=== PATIENT | female | born 1965 | race Caucasian/White ===

== ENCOUNTER 2019-05-27 19:45 | Inpatient (IN) ==
[2019-05-27] MEDS ORDERED: SOLU-MEDROL IV ONE (20:02)
[2019-05-27] MEDS ORDERED: DUONEB (A & A) INH ONE (20:02)
--- NOTE | 2019-05-27 20:38 | Diag Imaging Result Doc PS360 ---
CHEST-1 VIEW - 05/27/2019 INDICATION: sob COMPARISON: 02/10/2019 FINDINGS: There is worsening cardiomegaly and pulmonary vascular congestion. There are ill-defined interstitial infiltrates bilaterally. No pneumothorax or large pleural effusion. IMPRESSION: Cardiomegaly and pulmonary edema. Electronically signed by Ori Reed 05/27/2019 8:36 PM
[2019-05-27 20:48] LABS: ALB/GLOB RATIO 1.8; ALBUMIN 3.9 g/dL (3.5-5.0); CALCIUM 8.5 mg/dL (8.8-10.2); CREATININE 1.1 mg/dL (0.5-0.9); POTASSIUM 3.5 mmol/L (3.5-5.1); TOTAL BILIRUBIN 0.62 mg/dL (0.20-1.00); TOTAL PROTEIN 6.1 g/dL (6.3-8.3)
[2019-05-27 21:18] LABS: BASO# 0.02 X1000 (0.0-0.2); BASO% 0.3 % (0.0-0.8); EOS% 1.3 % (0.0-10.0); HEMOGLOBIN 13.9 g/dL (12.0-16.0); IMM GRAN# 0.03 X1000 (0.0-0.04); IMM GRAN% 0.4 % (0.0-0.5); LYMPH% 16.9 % (20.5-51.1); MCH 35.9 PG (27-31); MCHC 33.9 g/dL (33-37); MCV 105.9 FL (81-99); MONO# 0.88 X1000 (0.11-0.59); MONO% 11.5 % (1.7-9.3); MPV 11.5 FL (7.4-10.4); NEUT# 5.35 X1000 (1.4-6.5); NEUT% 69.6 % (42.2-75.2); PLT 209 X1000 (130-400); RBC 3.87 XMIL (4.2-5.4); RDW 14.9 % (11.5-14.5); WBC 7.68 X1000 (4.8-10.8)
--- NOTE | 2019-05-27 21:57 | EKG Report ---
Test Performed on : 05/27/2019 9:43:07 PM Test Reason : sob Blood Pressure : / mmHG Vent. Rate : 063 BPM Atrial Rate : 063 BPM P-R Int : 172 ms QRS Dur : 086 ms QT Int : 434 ms P-R-T Axes : 034 001 051 degrees QTc Int : 444 ms Normal sinus rhythm. Normal ECG When compared with ECG of 09-FEB-2019 22:43, No significant change was found Unconfirmed Result
--- NOTE | 2019-05-27 22:22 | PROVIDER DOCUMENTATION ---
This chart was entered by Sri Bryson Scribe, acting as scribe for Ty Charles MD. HPI-Respiratory General - General Chief Complaint: Shortness of Breath Stated Complaint: ALLERGIC REACTION Time Seen by Provider: 05/27/19 19:55 Source: patient Allergies/Adverse Reactions: Patient Allergies Allergy/AdvReac Type Severity Reaction Status Date / Time bacitracin Allergy Mild blisters Verified 11/16/17 05:57 [From Neosporin ([id number])] bacitracin zinc * Allergy Mild blisters Verified 11/16/17 05:57 [From Neosporin ([id number])] neomycin sulfate * Allergy Mild blisters Verified 11/16/17 05:57 [From Neosporin ([id number])] polymyxin B Allergy Mild blisters Verified 11/16/17 05:57 [From Neosporin ([id number])] Home Medications: Home Medication List Medication Instructions Recorded Confirmed Last Taken Type Albuterol Sulfate [Albuterol 8.5 gm INHALATION DAILY 05/27/19 05/27/19 Unknown History Sulfate Hfa] Amlodipine Besylate 10 mg PO DAILY 05/27/19 05/27/19 Unknown History Aspirin 325 mg PO DAILY 05/27/19 05/27/19 Unknown History Buprenorphine 1 patch TD ORDERED 05/27/19 05/27/19 Unknown History Carvedilol 25 mg PO BID 05/27/19 05/27/19 Unknown History Cholecalciferol (Vitamin D3) 1,000 unit PO DAILY 05/27/19 05/27/19 Unknown History [Vitamin D3] Duloxetine [Cymbalta] 60 mg PO DAILY 05/27/19 05/27/19 Unknown History Fluticasone/Salmet 100/50 INH 1 puff INH RTBID 05/27/19 05/27/19 Unknown History [Advair 100/50 Diskus] Furosemide 20 mg PO DAILY 05/27/19 05/27/19 Unknown History Gabapentin 400 mg PO DAILY 05/27/19 05/27/19 Unknown History LISINOpril [Prinivil] 20 mg PO DAILY 05/27/19 05/27/19 Unknown History PRAVAstatin [Pravachol] 40 mg PO DAILY 05/27/19 05/27/19 Unknown History Tiotropium [place] Inhaler 2 puff INH RTDAILY 05/27/19 05/27/19 Unknown History [Spiriva] Tizanidine [Zanaflex] 4 mg PO QHS 05/27/19 05/27/19 Unknown History - History of Present Illness-Resp Nature of Presenting Problem: Pt is 54/F presenting to ED w/ SOB, cough for the last week, worsening today. Pt has hx of COPD and is a current everyday smoker. Pt sts that she was dx w/ cellulitis and has been on Celfex, since then she has had fever and now has itchy, red spots on her lower legs bilaterally. Severity in ED: reports: mild Onset/Duration: reports: 1 week ago Timing: reports: still present Cough Quality/Degree: reports: mild Episode Frequency: chronic episodes (COPD) Current Respiratory Medication Therapy: Initiated none Modifying Factors: improves with: nothing Associated Symptoms: reports: cough, fever/chills, short of breath. denies: wheezing Similar Symptoms Previously?: Yes Recently seen or treated by another doctor?: Yes Review of Systems - Adult - REVIEW OF SYSTEMS - ADULT Constitutional: reports: fever. denies: chills Eyes: reports: no symptoms reported Ears, Nose, Mouth & Throat: reports: no symptoms reported Cardiovascular: reports: no symptoms reported. denies: chest pain Respiratory: reports: cough, shortness of breath. denies: wheezing Gastrointestinal: reports: no symptoms reported, frequent heartburn. denies: nausea, vomiting Genitourinary: reports: no symptoms reported Musculoskeletal: reports: no symptoms reported Integumentary: reports: no symptoms reported Neurological: reports: no symptoms reported. denies: dizziness/vertigo, headache/migraines Psychiatric: reports: no symptoms reported Endocrine: reports: no symptoms reported Hematologic/Lymphatic: reports: no symptoms reported Allergic/Immunologic: reports: no symptoms reported All Other Systems: Reviewed and Negative Past History - Adult - PAST MEDICAL HISTORY-ADULT Review of Records: reports: Old Records Reviewed, Nursing Assessment Review, Medications Reviewed, Social history reviewed & non-contributory. Major Childhood Illnesses: reports: history unknown Cardiovascular: reports: cardiac disease, HTN, hyperlipidemia, [place] Respiratory: reports: denies history, other (smoker) Gastrointestinal: reports: GERD Obstetrical/Gynecological: reports: denies history Genitourinary: reports: denies history Musculoskeletal: reports: denies history Neurological: reports: denies history Psychiatric: reports: denies history Endocrine/Immune: reports: denies history Other Conditions: reports: denies history - PRIOR SURGERIES/PROCEDURES Surgical/Procedure History: reports: cholecystectomy, other (Foot surgery) - PRIOR HOSPITALIZATIONS Prior Hospitalizations: reports: none - IMMUNIZATION STATUS Childhood Immunizations: See Nurse Assessment Flu Vaccine: See Nurse Assessment - FAMILY HISTORY Family History: reviewed, not pertinent - SOCIAL HISTORY Smoking: cigarettes, greater than 1 pack/day Provider spent 3-5 mins advising pt. on dangers of tobacco.: Discussed manners to quit use, and f/u contacts for add'l counseling. Substance Use: none/never Alcohol Use Frequency: sober (former use) Living Situation: family Physical Exam-General - PHYSICAL EXAM-ADULT Initial Vital Signs Reviewed: Yes - CONSTITUTIONAL General Appearance: appears well, alert, mild distress - EYES Eyes: PERRL/EOMI, pink conjunctivae - HEAD, EARS, NOSE, MOUTH & THROAT HENMT: moist mucous membranes - NECK Neck: non-tender, full range of motion, supple, normal inspection - RESPIRATORY Respiratory: chest non-tender, normal breath sounds, wheezing (bilaterally) - CARDIOVASCULAR Cardiovascular: regular rate, rhythm - GASTROINTESTINAL (ABDOMEN) Abdominal Exam: normal bowel sounds, non tender, soft - MUSCULOSKELETAL Back Exam: normal inspection Extremity: normal range of motion, normal gait, other (lower extremity vasculitis) - SKIN Integumentary: normal color, warm/dry - NEUROLOGIC Neurologic: grossly normal - PSYCHIATRIC Psych/Mental Status: normal mood/affect, normal thought content, normal thought process, oriented x 3 Progress - PLAN OF CARE/RESULTS Progress/Plan/Lab Results: Vital Signs - 8 hr 05/27/19 19:50 05/27/19 19:57 05/27/19 19:58 Temperature 99.3 F Pulse Rate 71 Respiratory Rate 24 Blood Pressure 126/77 126/77 O2 Sat by Pulse Oximetry 82 L 98 05/27/19 20:10 05/27/19 20:23 Temperature Pulse Rate 88 Respiratory Rate 16 Blood Pressure 99/64 O2 Sat by Pulse Oximetry 93 L 96 Laboratory Results - last 24 hr 05/27/19 05/27/19 05/27/19 20:05 20:05 20:05 WBC 7.68 RBC 3.87 L Hgb 13.9 Hct 41.0 MCV 105.9 H MCH 35.9 H MCHC 33.9 RDW Std Deviation 14.9 H Plt Count 209 MPV 11.5 H Immature Gran % (Auto) 0.4 Neut % (Auto) 69.6 Lymph % (Auto) 16.9 L [place] % (Auto) 11.5 H Eos % (Auto) 1.3 Baso % (Auto) 0.3 Immature Gran # (Auto) 0.03 Neut # (Auto) 5.35 Lymph # (Auto) 1.30 [place] # (Auto) 0.88 H Eos # (Auto) 0.10 Baso # (Auto) 0.02 Sodium 139 Potassium 3.5 Chloride 99 Carbon Dioxide 28 Anion Gap 12 BUN 13 Creatinine 1.1 H Estimated GFR/1.73 m2 51 BUN/Creatinine Ratio 12 Glucose 100 Calculated Osmolality 278 Calcium 8.5 L Total Bilirubin 0.62 AST 20 ALT 13 Alkaline Phosphatase 88 Troponin T Pom-N-Eojopjxthlf Pept Total Protein 6.1 L Albumin 3.9 Globulin 2.2 Albumin/Globulin Ratio 1.8 Plasma Lactate 1.0 05/27/19 05/27/19 20:05 20:05 WBC RBC Hgb Hct MCV MCH MCHC RDW Std Deviation Plt Count MPV Immature Gran % (Auto) Neut % (Auto) Lymph % (Auto) [place] % (Auto) Eos % (Auto) Baso % (Auto) Immature Gran # (Auto) Neut # (Auto) Lymph # (Auto) [place] # (Auto) Eos # (Auto) Baso # (Auto) Sodium Potassium Chloride Carbon Dioxide Anion Gap BUN Creatinine Estimated GFR/1.73 m2 BUN/Creatinine Ratio Glucose Calculated Osmolality Calcium Total Bilirubin AST ALT Alkaline Phosphatase Troponin T < 0.010 [id number]-Ifpwgfjzpie Pept 2057 H Total Protein Albumin Globulin Albumin/Globulin Ratio Plasma Lactate Orders Category Date Time Status Nursing- Obtain EKG ONCE Care 05/27/19 20:01 Active cxr [CHEST-1 VIEW] [RAD] Stat Exams 05/27/19 20:01 Completed BLOOD CULTURE [BLDCUL] Stat Lab 05/27/19 20:06 Results CBC WITH ELECTRONIC DIFF [HEME] Stat Lab 05/27/19 20:05 Completed COMPREHENSIVE METABOLIC PANEL [CHEM] Stat Lab 05/27/19 20:05 Completed LACTATE, PLASMA [CHEM] Stat Lab 05/27/19 20:05 Completed PRO B-NATRIURETIC PEPTIDE Stat Lab 05/27/19 20:05 Completed TROPONIN T Stat Lab 05/27/19 20:05 Completed Albuterol 2.5MG/Ipratrop 0.5MG [Duoneb (A & A)] Med 05/27/19 20:02 Discontinued 3 ml INH NOW ONE Methylprednisolone Sod Succ [Solu-Medrol] Med 05/27/19 20:02 Discontinued 125 mg IV NOW ONE Aerosol Treatments Routine Oth 05/27/19 20:02 Active Aerosol Treatments Stat Oth 05/27/19 20:02 Active EKG [EKG] Stat Ther 05/27/19 20:01 Draft Result Diagrams: 05/27/19 20:05 05/27/19 20:05 - EKG 1 Time of EKG reading by physician:: 21:43 EKG Read and Signed by:: Ty Charles EKG Interpretation (*Must complete 3 of following elements*): Normal (NSR, Normal ECG) Rate: 63 Rhythm: NSR - XRAY 1 XRAY: Bilateral XRAY Study: Chest Impression: Abnormal (CHEST-1 VIEW - 05/27/2019 INDICATION: sob COMPARISON: 02/10/2019 FINDINGS: There is worsening cardiomegaly and pulmonary vascular congestion. There are ill-defined interstitial infiltrates bilaterally. No pneumothorax or large pleural effusion. IMPRESSION: Cardiomegaly and pulmonary edema. Electronically signed by Ori Reed 05/27/2019 8:36 PM 05/27/192035 Interpreting Physician: Ori Reed MD Dictated Date/Time: 05/27/192034 cc: Ty Charles MD; Alyssa Coronel MD) Departure - Departure Date of Disposition Decision: 05/27/19 Time of Disposition Decision: 22:21 DIAGNOSIS: Pleural effusion Disposition: ADMITTED INPATIENT Certified Medical Emergency: Emergent Condition: Stable Referrals and Follow-Ups: Alyssa Coronel MD [Primary Care Provider] - - Critical Care Note This patient required my direct & personal management of CC.: No Attestation - Physician/ BILLY Attestation Patient care was provided by Advanced Practice Provider:: No The physician spent face to face time with patient:: Yes Advanced Practice Provider documentation review:: Supervising physician onsite and consulted in the evaluation and care of this patient. The physician did have a face to face encounter with the patient. This chart was documented by the indicated scribe, (Sri Bryson, Scribe) and accurately reflects the services I performed and decisions made by me, yT Charles MD, as attested by the provider's signature.
[2019-05-27 23:41] LABS: INR 1.01; PROTIME 13.4 Seconds (11.0-16.0)
[2019-05-27 23:42] LABS: PTT 32.4 Seconds (22.3-41.8)
[2019-05-28] MEDS ORDERED: DUONEB (A & A) INH ONE (00:07)
[2019-05-28] MEDS ORDERED: ZOFRAN IV PRN (01:16)
[2019-05-28] MEDS ORDERED: TYLENOL PO PRN (01:22)
[2019-05-28] MEDS: BENADRYL PO PRN ×2 (01:38→16:22)
[2019-05-28] MEDS: TESSALON PO PRN ×2 (01:38→16:22)
[2019-05-28] MEDS: NICODERM PATCH TD PRN (01:38)
[2019-05-28] MEDS: NEURONTIN PO SCH ×2 (02:04→20:33)
[2019-05-28] MEDS ORDERED: DUONEB (A & A) INH SCH (04:30)
[2019-05-28 07:48] LABS: CALCIUM 8.6 mg/dL (8.8-10.2); CREATININE 1.2 mg/dL (0.5-0.9); POTASSIUM 3.6 mmol/L (3.5-5.1)
[2019-05-28] MEDS: CYMBALTA PO SCH (08:47)
[2019-05-28] MEDS: SOLU-MEDROL IV SCH ×2 (08:47→20:33)
[2019-05-28] MEDS: ASPIRIN PO SCH (08:48)
[2019-05-28] MEDS: VITAMIN D PO SCH (08:48)
[2019-05-28] MEDS: NORVASC PO SCH (08:48)
[2019-05-28] MEDS: PRINIVIL PO SCH (08:48)
[2019-05-28] MEDS: COREG PO SCH ×2 (08:48→20:33)
[2019-05-28] MEDS: LOVENOX SUBQ SCH (08:48)
[2019-05-28] MEDS: PRAVACHOL PO SCH (08:48)
[2019-05-28] MEDS ORDERED: LASIX PO SCH (09:00)
[2019-05-28] MEDS ORDERED: BUPRENORPHINE 10 MCG/HR PATCH TD SCH (09:00)
--- NOTE | 2019-05-28 14:30 | HISTORY AND PHYSICAL ---
PRIMARY CARE PROVIDER: Dr. Coronel. DATE AND TIME: 05/27/2019 at 2330. CHIEF COMPLAINT: Shortness of breath. HISTORY OF PRESENT ILLNESS: Ms Connell is a 54-year-old female with a past medical history most notable for COPD, coronary artery disease, hypertension, hyperlipidemia, lymphedema in bilateral lower extremities and chronic pain. The patient states that for the past week she has had worsening shortness of breath. She also reports that she has had some swelling and slight erythema in her bilateral lower extremities, which is slightly worse on her left than her right. She states that last week she was seen by her pain doctor and informed him of the symptoms. He did inform her that she had cellulitis in her bilateral lower extremities and gave her prescription for Keflex which she did have 7 day antibiotic course of. The patient states that swelling in her legs has not improved and she also reports that she has had some fever and itchiness in her bilateral lower extremities now too. She denies any headache, dizziness or chest pain, does report shortness of breath as previously mentioned. The patient states that she is not short of breath at rest, though this does occur with exertion. She does report a worsening cough as well. The patient states she normally has a productive cough of white yellow thick colored sputum though she states that she has had progressively worsening and more frequent cough. She denies any abdominal pain, nausea, vomiting or diarrhea. She denies any dysuria or urinary frequency. The patient does complain of pain in her bilateral lower extremities though she does have a history of neuropathy. Though as previously mentioned she is reporting some worsening swelling and erythema as well as she is complaining some itching in her bilateral lower extremities also. The patient reports that she does still smoke a pack of cigarettes per day. Upon evaluation in the ER, the patient did have inspiratory and expiratory wheezing and coarse rhonchi noted in bilateral full lung ulloa. She has not been febrile since arrival. She has no leukocytosis noted. CK and troponin were negative. ProBNP was 2057. EKG showed normal sinus rhythm at a rate of 63 with a QTc of 444. Chest x-ray showed cardiomegaly and pulmonary edema. The patient is reporting some orthopnea that just occurred has worsened in the past couple of days though she is denying any proximal nocturnal dyspnea and is just reporting the dyspnea upon exertion. She does have some trace edema noted in bilateral lower extremities though her left lower extremity does appear to be slightly more swollen than the right. She denies any known history of DVT or PE. The patient upon arrival to the ED did have an oxygen saturation that was noted to be 82% on room air. The patient denies any use of home oxygen though since receiving a breathing treatment and IV steroids and being placed on supplemental nasal cannula oxygen the patient's oxygen saturation has improved as well as her symptoms she reports. Though she still is having inspiratory, expiratory wheezing and rhonchi. This time the patient will placed inpatient for admission. REVIEW OF SYSTEMS: A 14 point review of systems was conducted with the patient and all were negative except for pertinent positives mentioned above HPI. PAST MEDICAL HISTORY: 1. Hypertension. 2. Hyperlipidemia. 3. Coronary artery disease. 4. COPD. 5. Previous history of alcohol abuse. The patient states she has not drank since 2013. 6. Nicotine dependence. 7. Chronic pain. 8. Neuropathy. 9. Bilateral lower extremity lymphedema. PAST SURGICAL HISTORY: 1. Right knee surgery. 2. Left foot surgery. 3. Cholecystectomy. SOCIAL HISTORY: The patient is a current 1 pack per day smoker. She did previously have a history of alcohol abuse though she reports she has not drank since 2013. There is no known history of illicit drug use. The patient does live with her fiancee. FAMILY HISTORY: Positive for her mother having liver cancer. ALLERGIES: Patient has allergies to Neosporin. HOME MEDICATIONS: 1. Albuterol sulfate HFA inhaler 1 to 2 puffs inhaled p.r.n. as directed. 2. Amlodipine 10 mg p.o. daily. 3. Aspirin 325 mg p.o. daily. 4. Buprenorphine transdermal 10 mcg/hour transdermal patch 1 patch transdermally every 7 days as directed. 5. Carvedilol 25 mg p.o. b.i.d. 6. Vitamin D3 1000 units p.o. daily. 7. Cymbalta 60 mg p.o. daily. 8. Advair 100/50 Diskus 1 puff inhaled b.i.d. 9. Furosemide 20 mg p.o. daily. 10. Gabapentin 400 mg p.o. at bedtime. 11. Lisinopril 20 mg p.o. daily. 12. Pravastatin 40 mg p.o. daily. 13. Spiriva 2 puffs inhaled daily. 14. Zanaflex 4 mg p.o. at bedtime. DIAGNOSTIC DATA: White blood cell count is 7680, hemoglobin 13.9, hematocrit 41, platelet count is 209,000. PT 13.4, INR 1.01, PTT is 32.4. Sodium 139, potassium 3.5, chloride 99, serum bicarb 28, BUN 13, creatinine 1.1 with GFR 51, glucose 100, calcium 8.5, magnesium 1.9. Liver function tests within normal limits. Troponin is less than 0.01. ProBNP is 2057. Plasma lactate is 1. EKG showed normal sinus rhythm at a rate of 63 with a QTc of 444. Chest x-ray showed cardiomegaly and pulmonary edema. This is per Radiology. PHYSICAL EXAMINATION: VITAL SIGNS: Temperature 98.2 degrees, heart rate 70, respirations 20, blood pressure 118/65, oxygen saturation is 97% nasal cannula at 4 L. GENERAL: Ms. Connell is a pleasant 54-year-old female she was resting in the ER stretcher, she was in no acute distress. She was awake, alert, and able to answer questions appropriately. HEENT: Head is atraumatic, normocephalic. Pupils are equal, round, reactive to light were 3 mm bilaterally and brisk. Oral mucosa is moist. Oropharynx is clear. NECK: Supple. Trachea midline. There is no JVD noted upon examination. There was no hepatojugular reflex either. CARDIOVASCULAR: Patient has S1-S2 present. No murmurs, gallops, rubs appreciated with a regular rate and rhythm. PULMONARY: Patient has symmetrical chest expansion bilaterally. Lung sounds in bilateral full ulloa did have inspiratory, expiratory wheezing as well as some coarse rhonchi noted. ABDOMEN: Soft, nontender. Does not appear to be distended though the patient does have a protuberant abdomen noted. Bowel sounds are present in all 4 quadrants were normoactive. EXTREMITIES: No cyanosis noted. The patient does have some trace edema present in bilateral lower extremities. Her left lower extremity does appear to be slightly more swollen than the right. She does have some erythema noted in bilateral lower extremities just inferior to her knees bilaterally though full motor and sensory is intact in all extremities, radial and pedal pulses were 2+ bilaterally. INTEGUMENTARY: Patient's skin is pink, warm, dry. NEUROLOGICAL: Patient is alert and oriented to person, place, time and situation. She is able to move all extremities. There are no focal neurological deficits noted. ASSESSMENT AND PLAN: 1. Chronic obstructive pulmonary disease exacerbation. For this we will continue with scheduled DuoNeb treatments, IV Solu-Medrol. Aggressive pulmonary toilet with incentive spirometry and frequent encouragement to turn, cough and deep breathe. The patient is maintaining adequate oxygen saturations on supplemental oxygen with nasal cannula. We will continue to follow closely. 2. Acute hypoxic respiratory failure. This is likely secondary to #1. Post admission the patient is maintaining adequate oxygen saturations on supplemental nasal cannula at 3 to 4 L at this time. Continue with treatment as mentioned above #1. 3. Rule out possible congestive heart failure. The patient has had some trace edema in her bilateral lower extremities is complaining of dyspnea. There was some mention of pulmonary edema on her chest x-ray, though upon examining the patient this does seem to be more related to a chronic obstructive pulmonary disease exacerbation. We will go ahead and obtain an echocardiogram to rule out possible heart failure. 4. Bilateral lower extremity edema. As previously mentioned, this does appear to be worse on the left than the right. She reports that she was just recently treated for cellulitis. She did complete a 7 day course of Keflex. We have ordered bilateral lower extremity venous Dopplers to rule out any venous insufficiency. We are waiting those results and will continue to follow. 5. Hypertension. We will continue her regularly prescribed antihypertensive medications of Norvasc, Coreg and lisinopril. 6. Chronic pain and neuropathy. We will continue the patient's buprenorphine transdermal patch and her Neurontin. 7. Deep vein thrombosis prophylaxis provided with Lovenox 40 mg subcu q.24 hours. The patient has been placed on the medical floor with telemetry. She will have vital signs q.4 hours, strict intake and output, incentive spirometry. She will be on a heart healthy diet. We will repeat a CBC, BMP as well as a TSH and free T4 in the morning. Further orders and recommendations pending hospital course, diagnostic studies and physician evaluations. Dictated by KARIN Liao for Antoine Dunlap MD I interviewed and examined the patient with KARIN. This dictation acurately reflects the information we gathered and the treatment plan that we discussed prior to admission. cc: MD SARA Singletary
--- NOTE | 2019-05-28 14:39 | Diag Imaging Result Doc PS360 ---
CT THORAX W/O CONTRAST - 05/28/2019 INDICATION: Dyspnea/COPD vrs CHF COMPARISON: Previous chest x-rays FINDINGS: There is cardiomegaly. There is advanced calcified coronary artery disease. There are normal-sized mediastinal lymph nodes. There are cholecystectomy clips. No acute abnormality in the upper abdomen. There is some hazy nonspecific infiltrate scattered diffusely and bilaterally. There is some patchy atelectasis in the right middle lobe and the left lower lobe. No significant emphysema. There are moderate degenerative changes of the spine. No acute or suspicious bony lesion. IMPRESSION: Cardiomegaly. Heterogeneous ill-defined bilateral infiltrates, likely a component of pulmonary edema. Bronchopneumonia is not excluded. This exam was performed using automated exposure control, adjustment of mA or kV according to patient size, and/or use of iterative reconstruction technique Electronically signed by Ori Reed 05/28/2019 2:36 PM
--- NOTE | 2019-05-28 15:52 | ECHO REPORT ---
ORDER DATE: 05/28/2019 INTERPRETING PHYSICIAN: Car Bennett MD. CLINICAL INDICATIONS: Dyspnea, swelling. REQUESTED BY: Hospitalist. M-MODE MEASUREMENTS: Left ventricle end diastole: 4.7 cm. Left ventricle end systole: 2.3 cm. Posterior wall: 1.1 cm. Interventricular septum: 1.1 cm. Left atrium: 3.7 cm. Aortic diameter: 3.2 cm. SUMMARY OF 2-DIMENSIONAL IMAGIN. Left ventricular function is normal, ejection fraction estimated at 65% to 70%. There is no wall motion abnormality. 2. The right ventricle appears to be normal. 3. The aortic valve looks normal. Color flow mapping unremarkable. 4. The mitral valve looks normal. Color flow mapping indicates very mild degree of regurgitation. 5. Pulse wave Doppler of mitral inflow is normal. 6. Tissue Doppler of septal and lateral mitral annulus averages 7 cm. 7. There is no diastolic dysfunction. 8. The tricuspid valve shows mild degree of regurgitation. 9. The pulmonary pressure appears to be in the order of 51 mmHg. 10.The pulmonic valve is unremarkable. 11.There is no pericardial effusion, no mass, and no thrombus. 12.The chambers do not appear to be dilated. Clinical correlation is recommended. cc: Car Bennett MD
[2019-05-28] MEDS: LASIX IV SCH (16:10)
[2019-05-28] MEDS: LEVAQUIN 750 MG/D5W 750 MG/150 ML IVPB IV SCH (16:10)
--- NOTE | 2019-05-28 16:37 | PROGRESS NOTE ---
DATE: 05/28/2019 SUBJECTIVE: This morning Ms. Connell refers to be feeling the same. She was admitted early today because of progressively worsening shortness of breath. Ms. Connell is a 54-year-old female, who is a smoker known to have COPD, came to the emergency department because of progressively worsening shortness of breath. This morning, she continues to have some residual shortness of breath. OBJECTIVE: Vital signs: Blood pressure 127/75, pulse of 69, respirations 20, temperature is 98.1 degrees. The patient is saturating 96% on 4 L. General: Ms. Connell is a 54-year-old female. She was in bed. She did not seem to be in any cardiopulmonary distress. HEENT: Mucosa is pink and moist. Anicteric. Acyanotic. Neck: Supple. No JVD. Chest: Air entry was bilaterally reduced. There is diffuse bilateral wheezing in expiration and some prolonged expiratory phase of respiration. Cardiovascular: Regular rate and rhythm. There was no murmurs, no rubs, no gallops. [place] beat is at 5th intercostal space, midclavicular line. Abdomen: Soft, distended, but nontender. Extremities: About 2+ pedal edema bilateral. It looks like the left is slightly worse than the right. LABORATORY DATA: From yesterday, the chemistry this morning reveals creatinine is 1.2. IMAGING DATA: A chest x-ray did reveal cardiomegaly and pulmonary edema. A CT scan of the chest shows cardiomegaly. Also heterogeneous ill-defined bilateral infiltrates likely accompanied of pulmonary edema, bronchopneumonia is not excluded. ASSESSMENT: 1. Acute hypoxemic respiratory failure on presentation, presumably combination of chronic obstructive pulmonary disease exacerbation and pulmonary edema. 2. Chronic obstructive pulmonary disease exacerbation. Patient is on standard of care (antibiotics, bronchodilation therapy and steroids). 3. Pulmonary edema suggestive of congestive heart failure, presumably with preserved ejection fraction. An echocardiogram has been done. 4. Fluid overload secondary to congestive heart failure. 5. Tobacco abuse. Patient has been counseled. 6. Hypertension, controlled. 7. History of peripheral neuropathy. PLAN: So, in general I think Ms. Connell continues to be bronchospastic. I am going to continue with the steroids, bronchodilation therapy, and I have added antibiotics to her regimen. I have also switched p.o. Lasix to IV for a better diuresis. We are pending echocardiogram to follow up on ejection fraction. We also pending the Doppler ultrasounds of the lower extremities to rule out any deep vein thrombosis. I have reviewed Ms Connell's medication list and I have not made any changes. cc: Be Villarreal MD
[2019-05-29] MEDS: NICODERM PATCH TD PRN (02:47)
[2019-05-29 04:44] LABS: ALLEN TEST YES; BE 5.6 mmoll (-3.0-3.0); BLOOD TYPE ARTERIAL; HCO3-(ACT) 29.1 mmoll (20.0-26.0); O2HB 91.4 % (95.0-99.0); PCO2(98.6) 45 mmHg (35-45); PO2(98.6) 62 mmHg (60-100); SAMPLE BLOOD; SAO2 95.7 % (95.0-100.0); THB 13.2 g/dL (11.5-17.4); pH(98.6) 7.44 (7.35-7.45)
[2019-05-29 04:45] LABS: MODALITY ROOM AIR
[2019-05-29 07:12] LABS: BASO# 0.01 X1000 (0.0-0.2); BASO% 0.1 % (0.0-0.8); HEMATOCRIT 35.8 % (37.0-47.0); HEMOGLOBIN 13.5 g/dL (12.0-16.0); IMM GRAN# 0.04 X1000 (0.0-0.04); IMM GRAN% 0.4 % (0.0-0.5); LYMPH# 0.68 X1000 (1.2-3.4); LYMPH% 7.2 % (20.5-51.1); MCH 39.6 PG (27-31); MCHC 37.7 g/dL (33-37); MONO# 0.56 X1000 (0.11-0.59); MONO% 5.9 % (1.7-9.3); MPV 11.5 FL (7.4-10.4); NEUT# 8.16 X1000 (1.4-6.5); NEUT% 86.4 % (42.2-75.2); PLT 255 X1000 (130-400); RBC 3.41 XMIL (4.2-5.4); RDW 14.9 % (11.5-14.5); WBC 9.45 X1000 (4.8-10.8)
[2019-05-29 07:43] LABS: ALBUMIN 3.5 g/dL (3.5-5.0); CALCIUM 9.2 mg/dL (8.8-10.2); CREATININE 1.3 mg/dL (0.5-0.9); MAGNESIUM 2.1 mg/dL (1.5-2.7); PHOSPHORUS 2.8 mg/dL (2.7-4.5); POTASSIUM 3.7 mmol/L (3.5-5.1)
[2019-05-29] MEDS: SOLU-MEDROL IV SCH ×2 (08:57→20:39)
[2019-05-29] MEDS: VITAMIN D PO SCH (09:00)
[2019-05-29] MEDS: CYMBALTA PO SCH (09:00)
[2019-05-29] MEDS: COREG PO SCH ×2 (09:00→20:39)
[2019-05-29] MEDS: ASPIRIN PO SCH (09:00)
[2019-05-29] MEDS: PRAVACHOL PO SCH (09:00)
[2019-05-29] MEDS: NORVASC PO SCH (09:00)
[2019-05-29] MEDS: LASIX IV SCH (09:01)
[2019-05-29] MEDS: LOVENOX SUBQ SCH (09:01)
[2019-05-29] MEDS: PRINIVIL PO SCH (09:02)
[2019-05-29] MEDS: TESSALON PO PRN (09:07)
[2019-05-29] MEDS: LEVAQUIN 750 MG/D5W 750 MG/150 ML IVPB IV SCH (15:23)
--- NOTE | 2019-05-29 16:01 | PROGRESS NOTE ---
DATE: 05/29/2019 SUBJECTIVE: This morning Ms. Connell referred to be fairly okay. Still having some baseline shortness of breath. Still has some swelling in the lower extremities. OBJECTIVE: Vital signs: Blood pressure is 138/74, pulse of 59, respirations 20, temperature 97.7 degrees. The patient was saturating about 94 to 97 on 2 L. General: Ms. Connell is a 54-year- old, morbidly obese, female. She has a BMI of 40.2. She is in bed. Not seemingly distressed. HEENT: Mucosa is pink and moist. Anicteric. Acyanotic. Neck: Supple. I did not see any JVD. Chest: Air entry is bilaterally reduced. There is diffuse bilateral wheezing in expiration. There is a prolonged expiratory phase of respiration. I did not hear any crackles. Cardiovascular: Regular rate and rhythm. No murmurs. No rubs. No gallops. GI: Abdomen is soft. It is distended but nontender. Bowel sounds present. No hepatosplenomegaly. Extremities: About 2+ pedal edema. FACIALIST: Patient is awake, alert, and oriented. There is no focal neurological deficit. So far blood cultures have been 48 hours negative. LABORATORY DATA: WBC is 9.45, hemoglobin is 13.5, platelet count of 255,000. Chemistry is completely unremarkable. Creatinine is slightly elevated at 1.3. ASSESSMENT: 1. Acute hypoxemic respiratory failure on presentation secondary to a combination of chronic obstructive pulmonary disease exacerbation and pulmonary edema. 2. Chronic obstructive pulmonary disease exacerbation. The patient is on antibiotics, bronchodilation therapy, and steroids. She continues to be fairly bronchospastic. We are going to continue with therapy. 3. Fluid overload secondary to congestive heart failure with preserved ejection fraction, more so right heart failure. 4. Tobacco abuse prior to hospitalization. 5. Hypertension, controlled. 6. Pulmonary artery hypertension with pulmonary artery pressures of 51 mmHg noted on echo. 7. Morbid obesity with suspected obstructive sleep apnea. Patient is advised to follow up with sleep studies on an outpatient basis. cc: Be Villarreal MD
[2019-05-29] MEDS: NEURONTIN PO SCH (20:39)
[2019-05-30] MEDS: NICODERM PATCH TD PRN (05:56)
[2019-05-30 06:42] LABS: ALBUMIN 3.4 g/dL (3.5-5.0); CALCIUM 8.7 mg/dL (8.8-10.2); CREATININE 1.4 mg/dL (0.5-0.9); MAGNESIUM 2.1 mg/dL (1.5-2.7); PHOSPHORUS 3.1 mg/dL (2.7-4.5); POTASSIUM 3.5 mmol/L (3.5-5.1)
[2019-05-30] MEDS: SOLU-MEDROL IV SCH ×2 (08:32→20:08)
[2019-05-30] MEDS: COREG PO SCH ×2 (08:32→20:08)
[2019-05-30] MEDS: LOVENOX SUBQ SCH (08:32)
[2019-05-30] MEDS: CYMBALTA PO SCH (08:32)
[2019-05-30] MEDS: VITAMIN D PO SCH (08:32)
[2019-05-30] MEDS: NORVASC PO SCH (08:32)
[2019-05-30] MEDS: LASIX IV SCH (08:32)
[2019-05-30] MEDS: PRINIVIL PO SCH (08:32)
[2019-05-30] MEDS: ASPIRIN PO SCH (08:32)
[2019-05-30] MEDS: PRAVACHOL PO SCH (08:32)
[2019-05-30 08:56] LABS: BASO# 0.01 X1000 (0.0-0.2); BASO% 0.1 % (0.0-0.8); HEMATOCRIT 39.4 % (37.0-47.0); HEMOGLOBIN 14.2 g/dL (12.0-16.0); IMM GRAN# 0.05 X1000 (0.0-0.04); IMM GRAN% 0.4 % (0.0-0.5); LYMPH# 0.75 X1000 (1.2-3.4); MCH 40.1 PG (27-31); MCV 111.3 FL (81-99); MONO# 0.85 X1000 (0.11-0.59); MONO% 6.8 % (1.7-9.3); MPV 11.3 FL (7.4-10.4); NEUT# 10.83 X1000 (1.4-6.5); NEUT% 86.7 % (42.2-75.2); PLT 268 X1000 (130-400); RBC 3.54 XMIL (4.2-5.4); RDW 16.8 % (11.5-14.5); WBC 12.49 X1000 (4.8-10.8)
[2019-05-30 09:03] LABS: BANDS 8 % (0-1); LYMPHS 6 % (21-51); MONO 2 % (1-9); SEGS 82 % (42-75)
--- NOTE | 2019-05-30 09:26 | Diag Imaging Result Doc PS360 ---
CHEST-2 VIEWS - 05/30/2019 INDICATION: hypoxia COMPARISON: 05/27/2019 FINDINGS: There is stable cardiomegaly and pulmonary vascular congestion. There is been some decrease in density of the right basilar infiltrate. Otherwise stable echogram interstitial pulmonary edema. No pneumothorax or large pleural effusion. IMPRESSION: Improvement in the focal infiltrate in the right lung base. Stable cardiomegaly and pulmonary edema. Electronically signed by Ori Reed 05/30/2019 9:23 AM
[2019-05-30] MEDS: LEVAQUIN 750 MG/D5W 750 MG/150 ML IVPB IV SCH (14:16)
--- NOTE | 2019-05-30 18:41 | PROGRESS NOTE ---
DATE: 05/30/2019 SUBJECTIVE: This morning, Ms. Connell refers to be doing a whole lot better, but still has some residual shortness of breath, however. OBJECTIVE: Vital Signs: Blood pressure is 115/54, pulse of 57, respiration is 16, temperature is 98.0 degrees. Patient is saturating 97% on nasal cannula. General: Ms. Connell is a 54-year-old, morbidly obese, female with a BMI of 40.2. She is in bed in no distress. HEENT: Mucosa is pink and moist. Anicteric. Acyanotic. Neck: Supple. Chest: Air entry is bilaterally reduced. There still is diffuse distant wheezing and prolonged expiratory phase of respiration. Cardiovascular: Regular rate and rhythm. No murmurs, no rubs, no gallops. GI: Abdomen is soft, distended, but nontender. Bowel sounds present. No hepatosplenomegaly. Extremities: About 1+ pedal edema. It looks a lot better than yesterday. TRADE ANALYST: Patient is awake, alert. There is no focal neurological deficit. LABORATORY DATA: Has been reviewed. Patient's WBC is 12.49 with 8% of bands on the peripheral smear. Chemistry is also reviewed. Creatinine is 1.4. This has been kind of gradually creeping up. ProBNP is down to 1635. DIAGNOSTIC STUDIES: The patient's x-ray this morning shows improvement in the focal infiltrate in the right lung base, stable cardiomegaly and pulmonary edema. Urine output has not been charted. CURRENT MEDICATIONS: Have all been reviewed. ASSESSMENT: 1. Acute hypoxemic respiratory failure on presentation, improving. 2. Chronic obstructive pulmonary disease exacerbation. We will continue with standard of care. 3. Fluid overload, secondary to congestive heart failure with preserved ejection fraction, associated with pulmonary edema. We will continue with diuretic therapy. 4. Tobacco abuse prior to hospitalization. Patient has been counseled. 5. Hypertension, controlled. 6. Pulmonary hypertension with pulmonary artery systolic pressure of 51 on echocardiogram noted. 7. Morbid obesity, with suspected obstructive sleep apnea. Patient has been advised to follow up with sleep team. cc: Be Villarreal MD
[2019-05-30] MEDS: NEURONTIN PO SCH (20:08)
[2019-05-31 06:32] LABS: ALBUMIN 3.5 g/dL (3.5-5.0); CALCIUM 9.2 mg/dL (8.8-10.2); CREATININE 1.2 mg/dL (0.5-0.9); PHOSPHORUS 3.6 mg/dL (2.7-4.5); POTASSIUM 3.7 mmol/L (3.5-5.1)
[2019-05-31 06:57] LABS: HEMATOCRIT 41.4 % (37.0-47.0); HEMOGLOBIN 13.9 g/dL (12.0-16.0); MCH 36.3 PG (27-31); MCHC 33.6 g/dL (33-37); MCV 108.1 FL (81-99); MPV 11.2 FL (7.4-10.4); RBC 3.83 XMIL (4.2-5.4); RDW 14.5 % (11.5-14.5); WBC 12.54 X1000 (4.8-10.8)
--- NOTE | 2019-05-31 07:24 | Extremity Venous Study ---
PROCEDURE NAME: Venous U/S Bilateral Legs - 05/28/2019 STUDY: This is the bilateral lower extremity venous duplex, and color flow imaging study using the [employer] vivid E9 ultrasound System with a 9-LD transducer. REFERRING PHYSICIAN: Dylan. TRADES HELPER: Gwen Gayle RVT. INDICATIONS: Bilateral lower extremity pain, edema suggestive of deep venous thrombosis. FINDINGS: Right common femoral vein and its branches, deep and superficial femoral veins were satisfactorily imaged. They had flow through them and were compressible. Right popliteal vein and the deep veins below the right knee were all compressible and had flow through them. The superficial veins of the right lower extremity were compressible throughout their length. The left common femoral vein and its branches, deep and superficial femoral veins were also satisfactorily imaged. They had flow through them and were compressible. Left popliteal vein and the deep veins below the left knee were all compressible and had flow through them. The superficial veins of the left lower extremity were compressible throughout their length. INTERPRETATION: No evidence of acute deep or superficial venous thrombosis of the bilateral lower extremities. cc: Alem Tipton MD
[2019-05-31] MEDS: LASIX IV SCH (09:19)
[2019-05-31] MEDS: ASPIRIN PO SCH (09:19)
[2019-05-31] MEDS: COREG PO SCH ×2 (09:19→20:44)
[2019-05-31] MEDS: PRAVACHOL PO SCH (09:19)
[2019-05-31] MEDS: CYMBALTA PO SCH (09:19)
[2019-05-31] MEDS: PRINIVIL PO SCH (09:19)
[2019-05-31] MEDS: LOVENOX SUBQ SCH (09:20)
[2019-05-31] MEDS: NORVASC PO SCH (09:20)
[2019-05-31] MEDS: SOLU-MEDROL IV SCH ×2 (09:20→20:43)
[2019-05-31] MEDS: VITAMIN D PO SCH (09:20)
--- NOTE | 2019-05-31 09:22 | Diag Imaging Result Doc PS360 ---
EXAM: CHEST-PORTABLE INDICATION: dyspnea TECHNIQUE: One view COMPARISON: 05/30/2019 FINDINGS: Pulmonary venous congestion and interstitial edema are approximately stable. No new consolidation is identified. Cardiac silhouette is stable. IMPRESSION: Stable chest. Electronically signed by Danny Eldridge 05/31/2019 9:19 AM
[2019-05-31] MEDS: NICODERM PATCH TD PRN (09:33)
--- NOTE | 2019-05-31 11:20 | PROGRESS NOTE ---
DATE: 05/31/2019 SUBJECTIVE: This morning Ms. Connell seemed refers to be getting slightly better, but has still remarkable wheezing. OBJECTIVE: Blood pressure is 132/76, pulse of 59, respiration is 18, temperature 98 degrees. Patient is saturating 96% on 4 L.General: Ms. Connell is a 54-year-old, morbidly obese, female. She is in bed she is not in any distress. HEENT: Mucosa is pink and moist. Anicteric. Acyanotic. Neck: Supple. Chest: Air entry is bilaterally reduced. There is still some wheezing diffusely in both lung ulloa. Cardiovascular: Regular rate and rhythm. Abdomen: Soft, distended, but nontender. Bowel sounds present. Extremities: About 1+ pedal edema. HEATING ELEMENT BUILDER: Patient is awake, alert, oriented. LABORATORY DATA: WBC is 12.54, hemoglobin is 13.7, platelet count of 263,000. Chemistry is also reviewed. Creatinine is down to 1.6. Patient's I's and O's: Urine output was about 400 only documented. Patient is consuming between 50 to 100 percent of her meals. IMAGING STUDIES: This morning seems to continue to suggest cardiomegaly and pulmonary edema. CURRENT MEDICATIONS: Have all been reviewed. No changes. ASSESSMENT: 1. Acute hypoxemic respiratory failure on presentation is improving. Patient continues to be needing oxygen supplementation. 2. Chronic obstructive pulmonary disease exacerbation. The patient is on steroids, antimicrobial therapy, and bronchodilation. She is still remarkably bronchospastic. She has being on treatment for at least 4 days, so we will get pulmonary medicine to evaluate her as well. 3. Tobacco use and abuse prior to hospitalization. Patient has been counseled. 4. Hypertension controlled. 5. Pulmonary hypertension with pulmonary artery systolic pressure of 51 mmHg on echo noted. 6. Morbid obesity with suspected obstructive sleep apnea. Patient has been advised to follow up with sleep studies. 7. Acute on chronic renal failure creatinine seems to be at baseline. PLAN: In general, I think Ms. Connell is doing fairly okay, but she still remains extremely bronchospastic and she is on standard therapy. We will get a Pulmonary Medicine to evaluate her today to see if there is anything else that they would have to change. cc: Be Villarreal MD
[2019-05-31] MEDS ORDERED: NS NEB INH SCH (13:15)
[2019-05-31] MEDS: MUCINEX DM PO SCH ×2 (13:22→20:44)
--- NOTE | 2019-05-31 14:25 | CONSULTATION ---
DATE OF CONSULTATION: 05/31/2019 REQUESTING PROVIDER: Dr. Be Villarreal. REASON FOR CONSULTATION: COPD exacerbation, not improving. HISTORY OF PRESENT ILLNESS: This is a 54-year-old, female with a medical history of COPD, ongoing tobacco abuse, hypertension, hyperlipidemia, coronary artery disease, history of alcohol abuse, chronic pain, neuropathy, bilateral lower extremity lymphedema and morbid obesity. She presented to the ER on 05/27/2019 with worsening shortness of breath. Initial workup in the ER revealed COPD exacerbation with acute hypoxic respiratory failure. She has been admitted to the medical floor for further evaluation and management. Per the progress notes, apparently, she has been on steroids and antimicrobial therapy since admission, but she is still remarkably bronchospastic. She currently is sitting on the edge of the bed. She is actually on room air. She states that she pulled the nasal cannula off for lunch. Oxygen saturation is in the lower 90s. The patient reports that she has more chest congestion recently, that she feels like there is something stuck in her chest and she has hard time to cough it up. She reported palpitations every now and then. She had some productive cough with a little bit of sputum at times. She reports that she has been treated with Keflex for cellulitis for a week before admission, which helped her left leg but not her right leg, which actually is starting having redness and mild edema. She reports witnessed snoring, but no wheezing, frequent interrupted sleep, morning headache, chest pain, bowel habit change, or urination discomfort. PAST MEDICAL HISTORY: 1. COPD, has been diagnosed for 7 years. She is on albuterol as needed, Advair once a day, and Spiriva 2 puffs a day. She reported she used albuterol about once a week recently. 2. Ongoing tobacco abuse. 3. Hypertension. 4. Hyperlipidemia. 5. Coronary artery disease. 6. History of alcohol abuse. 7. Chronic pain. 8. Neuropathy. 9. Bilateral lower extremity lymphedema. 10. Morbid obesity. Currently, BMI is 40.2. PAST SURGICAL HISTORY: 1. Right knee surgery. 2. Left foot surgery. 3. Cholecystectomy. SOCIAL HISTORY: The patient lives at home with her fiancee. The patient currently smokes 1 pack per day. She has been smoking over 25 years. She has a history of alcohol abuse and quit since 2013. She has no history of illicit drug use. The patient's fiancee is a daily smoker too. FAMILY HISTORY: Positive for liver cancer and COPD in her mother and heart disease in her father. ALLERGIES: Neosporin. REVIEW OF SYSTEMS: A 10-point review of systems was conducted and the pertinent is listed within the HPI, otherwise noncontributory. PHYSICAL EXAMINATION: Vital Signs: Temperature 98.1 degrees, blood pressure 128/88, pulse 56, respiratory rate 20, oxygen saturation 98% on nasal cannula at 4 L. General: Morbidly obese, resting, sitting on the edge of the bed with no acute distress noted. She is on room air at this time and she tolerated it with oxygen saturation staying in the low 90s. HEENT: Atraumatic, normocephalic. Trachea midline. Mucosa pink and moist. Respiratory: Even and unlabored, symmetrical excursion. Auscultation revealed bilateral inspiratory and expiratory wheezing, only inspiratory crackles bibasilarly, and prolonged expiratory phase with diminished breathing sounds bibasilarly. Cardiovascular: Regular rate and rhythm. Gastrointestinal: Soft, nontender, obese. Normoactive bowel sounds in all 4 quadrants. Extremities: Bilateral lower extremity pitting edema of 1+ with the left lower extremity worse than the right lower extremity. Left lower leg has moderate peau d' orange with erythema and warm to touch. Right lower leg has mild peau d' orange with some redness. Left second toe has an open wound with no signs or symptoms of infection noted. Neurologic: Alert and oriented x3. Speech fluent. Follows commands. LAB DATA: WBC 12.54, Hgb 13.9, Hct 41.4, Plt 263,000, Na+ 140, K+ 3.7, Cl- 100, CO2 28, BUN 30 Creatinine 1.2, glucose 173. IMAGING DATA: CXR reveals stable pulmonary venous congestion and interstitial edema. ASSESSMENT: This is a 54-year-old, female with a medical history of chronic obstructive pulmonary disease, ongoing tobacco abuse, hypertension, hyperlipidemia, coronary artery disease, history of alcohol abuse, chronic pain, neuropathy, bilateral lower extremity lymphedema, and morbid obesity. She has been admitted to the medical floor since 05/27/2019 with acute hypoxic respiratory failure secondary to chronic obstructive pulmonary disease exacerbation. 1. Acute hypoxic respiratory failure, improving. Currently, patient tolerating room air with oxygen saturation staying in the low 90s. 2. Chronic obstructive pulmonary disease exacerbation. 3. Ongoing tobacco abuse. 4. Morbid obesity with suspected obstructive sleep apnea. 5. Wound on the left second toe with suspected recurrent bilateral lower extremity cellulitis. PLAN: 1. Continue supplemental oxygen as needed. 2. Continue antibiotic and steroid. Start bronchodilators and resume patient's maintenance inhalers including Advair and Spiriva. 3. Follow up with blood culture. Chest x-ray, ABG, CBC, and BMP if indicated. 4. Daily smoking cessation education. 5. Recommend patient to lose weight by exercise and diet control. 6. Outpatient sleep study recommended. 7. Further recommendations pending hospital course. Thank you for the courtesy of this consult. Dictated by KARIN Peoples for Henrry Abad MD cc: KARIN Peoples MD [facility]
[2019-05-31] MEDS: LEVAQUIN 750 MG/D5W 750 MG/150 ML IVPB IV SCH (15:03)
[2019-05-31] MEDS: XOPENEX NEB INH SCH ×2 (16:01→22:55)
[2019-05-31] MEDS: ATROVENT NEB INH SCH ×2 (16:01→22:55)
[2019-05-31] MEDS: NEURONTIN PO SCH (20:44)
[2019-06-01] MEDS: XOPENEX NEB INH SCH ×3 (04:19→16:15)
[2019-06-01] MEDS: ATROVENT NEB INH SCH ×3 (04:19→16:15)
[2019-06-01 06:44] LABS: HEMATOCRIT 34.3 % (37.0-47.0); HEMOGLOBIN 15.4 g/dL (12.0-16.0); MCHC 44.9 g/dL (33-37); MCV 104.6 FL (81-99); MPV 11.2 FL (7.4-10.4); RBC 3.28 XMIL (4.2-5.4); RDW 14.3 % (11.5-14.5); WBC 11.24 X1000 (4.8-10.8)
[2019-06-01 07:02] LABS: ALBUMIN 3.6 g/dL (3.5-5.0); CALCIUM 9.2 mg/dL (8.8-10.2); CREATININE 1.1 mg/dL (0.5-0.9); PHOSPHORUS 4.1 mg/dL (2.7-4.5); POTASSIUM 3.8 mmol/L (3.5-5.1)
[2019-06-01] MEDS ORDERED: ADVAIR 100/50 DISKUS INH SCH (07:30)
[2019-06-01] MEDS ORDERED: SPIRIVA INH SCH ×2 (07:30)
[2019-06-01 08:25] VITALS: BP 139/81
[2019-06-01] MEDS: PRINIVIL PO SCH (10:15)
[2019-06-01] MEDS: NORVASC PO SCH (10:15)
[2019-06-01] MEDS: LOVENOX SUBQ SCH (10:15)
[2019-06-01] MEDS: ASPIRIN PO SCH (10:15)
[2019-06-01] MEDS: MUCINEX DM PO SCH (10:15)
[2019-06-01] MEDS: COREG PO SCH (10:15)
[2019-06-01] MEDS: CYMBALTA PO SCH (10:15)
[2019-06-01] MEDS: PRAVACHOL PO SCH (10:15)
[2019-06-01] MEDS: VITAMIN D PO SCH (10:16)
[2019-06-01] MEDS ORDERED: PREDNISONE PO ONE (10:18)
[2019-06-01] MEDS ORDERED: DOXYCYCLINE PO SCH (21:00)
[2019-06-02] MEDS ORDERED: PREDNISONE PO SCH (09:00)
[2019-06-02] MEDS ORDERED: LEVAQUIN PO SCH (09:00)
--- NOTE | 2019-06-02 10:28 | DISCHARGE SUMMARY ---
ADMISSION DATE: 05/27/2019 DISCHARGE DATE: 06/01/2019 DISPOSITION: Home. FOLLOW-UP: 1. Dr. Coronel. 2. Dr. Abad. CONSULTATION DURING THIS ADMISSION: Pulmonary Medicine was consulted; patient was seen by Dr. Abad. INVASIVE PROCEDURES DONE DURING THIS ADMISSION: None. IMAGING STUDIES OF SIGNIFICANCE.: 1. A chest x-ray did show cardiomegaly and pulmonary edema. 2. An echocardiogram showed an ejection fraction of 65% to 70% with pulmonary artery systolic pressure to be in the order of about [address] scan of the chest showed bronchopneumonia and pulmonary edema. 4. Multiple x-rays subsequently were done. 5. Patient also did qualify for home 2 oxygen. ADMISSION DIAGNOSES: 1. Chronic obstructive pulmonary disease exacerbation. 2. Acute hypoxemic failure. 3. Possible congestive heart failure. 4. Bilateral lower extremity edema. DIAGNOSES AT THE TIME OF DISCHARGE: 1. Acute hypoxemic respiratory failure secondary to pulmonary edema and chronic obstructive pulmonary disease exacerbation. 2. Chronic obstructive pulmonary disease exacerbation. 3. Tobacco use and abuse prior to hospitalization. 4. Hypertension. 5. Pulmonary hypertension with pulmonary artery systolic pressure of 51 mmHg on echocardiogram. 6. Acute on chronic renal failure. Creatinine came to baseline. 7. Mild congestive heart failure, predominantly right heart failure. 8. Hypertension. DISCHARGE MEDICATIONS: 1. Amlodipine 10 mg p.o. daily. 2. Buprenorphine. 3. Carvedilol 25 b.i.d. 4. Vitamin D 1000 units daily. 5. Cymbalta 60 mg p.o. daily. 6. Advair inhaler. 7. Furosemide 20 mg p.o. daily. 8. Lisinopril 20 mg p.o. daily. 9. Pravastatin 40 mg p.o. daily. 10. Spiriva inhaler. 11. Gabapentin 400 mg at bedtime. 12. Levaquin 500 p.o. daily. 13. Mucinex. 14. Prednisone 20 mg p.o. daily. 15. Doxycycline 100 mg p.o. b.i.d. 16. Tessalon 100 mg three times per day p.r.n. PRESENTING COMPLAINT: Shortness of breath. HISTORY OF PRESENTING COMPLAINT: Ms. Connell is a 54-year-old female, who has a history of COPD, coronary artery disease, dyslipidemia, intermittent lower extremity swelling, came to the emergency department because of difficulty breathing. On presentation, she was evaluated, was found to have O2 saturation of about 82% on room air. Imaging studies were done, including a chest x-ray and CT scan. The patient was subsequently admitted for acute medical management. HOSPITAL COURSE: Ms. Connell was admitted to the medical floor, was started on IV antimicrobial coverage, steroids, and bronchodilation therapy. She did improve slightly over the course of the next 2 days. However, not good enough, so Pulmonary Medicine was consulted and patient was seen by Dr. Abad. Ms. Connell was also suspected to have obstructive sleep apnea. During the hospital course, however gradually bronchospasm improved. She was evaluated today and her oxygen level does qualify her for home 2 oxygen therapy. Otherwise, she refers to be feeling much better. OBJECTIVE: Current vital signs: Blood pressure is 139/81, pulse of 58, respirations 19, temperature 97.8 degrees. The patient was saturating 97% on 2.5 L. General Exam: She looks obese on exam with a BMI of 41.2. Chest: Her chest still sounds some distant wheezing, but for the most part it sounds remarkably improved. No pedal edema. ENGINEERING JOB TITLES: Patient is awake, alert, and oriented. We have discussed and stressed most importantly the need for tobacco cessation with Ms. Connell. We have also addressed the need for her to follow up with Pulmonary/Sleep for sleep studies to rule out potential obstructive sleep apnea. All the discharge instructions have been discussed with Ms. Connell, and she voiced understanding. cc: MD Alyssa Brown MD Mamoun I. Najjar, MD
== END 2019-06-01 16:38 | disposition home health service (06) | DRG 291 ==
LOC: ED 19:45 → 1N 23:45 → SUATTDRO 23:45
PROVIDERS: ATTEND Internal Medicine